=== PATIENT | male | born 1955 | race African-American/Black ===

== ENCOUNTER 2019-01-24 08:51 | Inpatient (IN) ==
[2019-01-24 10:00] LABS: BASO# 0.03 X1000 (0.0-0.2); BASO% 0.5 % (0.0-0.8); EOS# 0.19 X1000 (0.0-0.7); EOS% 2.9 % (0.0-10.0); HEMATOCRIT 41.1 % (42.0-52.0); HEMOGLOBIN 13.2 g/dL (14.0-18.0); IMM GRAN# 0.02 X1000 (0.0-0.04); IMM GRAN% 0.3 % (0.0-0.5); LYMPH% 39.5 % (20.5-51.1); MCH 29.3 PG (27-31); MCHC 32.1 g/dL (33-37); MCV 91.1 FL (81-99); MONO# 0.64 X1000 (0.11-0.59); MONO% 9.7 % (1.7-9.3); MPV 10.9 FL (7.4-10.4); NEUT% 47.1 % (42.2-75.2); PLT 282 X1000 (130-400); RBC 4.51 XMIL (4.7-6.1); RDW 13.3 % (11.5-14.5); WBC 6.58 X1000 (4.8-10.8)
--- NOTE | 2019-01-24 10:20 | EKG Report ---
Test Performed on : 01/24/2019 08:56:04 AM Test Reason : chest pain Blood Pressure : / mmHG Vent. Rate : 055 BPM Atrial Rate : 055 BPM P-R Int : 180 ms QRS Dur : 082 ms QT Int : 372 ms P-R-T Axes : 044 -06 -03 degrees QTc Int : 355 ms Sinus bradycardia. with occasional premature ventricular complexes. Left atrial enlargement Septal infarct , age undetermined Abnormal ECG No previous ECGs available Unconfirmed Result
--- NOTE | 2019-01-24 10:26 | Diag Imaging Result Doc PS360 ---
CHEST-2 VIEWS - 01/24/2019 INDICATION: chest pain COMPARISON: None FINDINGS: The lungs are normally expanded and clear. Heart size and mediastinal contours are normal. No pneumothorax or pleural effusion. IMPRESSION: Negative exam. Electronically signed by Skyler Garrison 01/24/2019 10:23 AM
[2019-01-24 10:35] LABS: AGAP 12; BUN 12 mg/dL (8-22); CALCIUM 8.8 mg/dL (8.8-10.2); CHLORIDE 104 mmol/L (98-107); COSMO 279; ESTIMATED GFR > 60; GLUCOSE 88 mg/dL (70-104); POTASSIUM 4.3 mmol/L (3.5-5.1); SODIUM 140 mmol/L (136-145); TCO2 24 mmol/L (25-35)
[2019-01-24] MEDS ORDERED: G.I. COCKTAIL PO ONE (10:42)
[2019-01-24] MEDS ORDERED: PEPCID IV ONE (10:42)
[2019-01-24] MEDS ORDERED: SODIUM CHLORIDE 0.9% INJ ONE ×2 (10:42)
[2019-01-24] MEDS ORDERED: PROTONIX IV ONE (10:42)
[2019-01-24] MEDS ORDERED: NITROGLYCERIN SL ONE (12:15)
--- NOTE | 2019-01-24 13:37 | HISTORY AND PHYSICAL ---
HISTORY OF PRESENT ILLNESS: He states that he has been having this pain on the left side of his chest for 2 weeks. Seems to come and go. Seems to be he notes more frequent in the last couple days. He denies fever or chills. No pleuritic pain. He does lift weights every day, including doing curls. On exam, he is tender in the left pectoralis muscle and seems to be reproducible, the pain he is describing. He does state that his left arm will get numb at times, but no pain into his jaw or into his shoulder or no pain in the arm. He has not had any trauma to his chest or left arm. PAST MEDICAL HISTORY: Apparently he has had a stent placed, never had chest pain, but he was feeling weak and apparently arteriogram revealed one vessel disease. I am not sure of the anatomy of that. He never reported being told he had any congestive heart failure or damage to heart that we know of. He has got diabetes mellitus type 2. He has history of hypertension, history of hypercholesterolemia. PRIOR SURGICAL HISTORY: He had one stent placed and had a partial thyroidectomy. ALLERGIES: No known drug allergies. Note I see where he has had a myocardial perfusion scan on 01/12/2018. Images revealed normal left ventricular cavity size. Normal myocardial perfusion. Left ventricular ejection fraction was 65%. He also had an echo last January as well. Technically suboptimal study, but normal left ventricular size, moderate concentric left ventricular hypertrophy. Ejection fraction 65-70%. No significant valvular dysfunction. REVIEW OF SYSTEMS: He did not report any fever or chills. No change in visual or hearing acuity. Neck: No complaints of neck pain or adenopathy. No pleuritic pain or cough or sputum production. No complaints of palpitations. Gastrointestinal and Genitourinary: No complaints of change in bowels or urinary patterns. Endocrinologic/Hematologic: No significant complaints or history. PHYSICAL EXAMINATION: VITAL SIGNS: Temp 98.0, pulse 50, respirations 15, blood pressure 158/87, O2 sat was 96%. Weight is 260 pounds. Height is 6 feet 2 inches. HEENT: Pupils are equal and round. LUNGS: Clear anterior and lateral. CARDIOVASCULAR: Regular rhythm and rate without murmur or S3. No distended neck veins. Neck was supple. No thyroid nodules or thyromegaly appreciated. ABDOMEN: Soft. No pedal edema. CAROTID: Radial and femoral pulses 2+ and symmetrical. LAB: White count 6580, hematocrit 41, platelet count 282,000. Sodium 140, potassium 4.3, chloride 104, BUN 12, creatinine 1.0, blood sugar 88, lipase was 50. Troponin less than 0.01. His chest x-ray is negative. No sign of infiltrates. No sign of pathology. ASSESSMENT AND PLAN: 1. Atypical chest pain. I suspect this is going to be musculoskeletal. Seems to be reproducible. He has had a myocardial perfusion scan a year ago, which is normal. We will admit him, check serial cardiac enzymes, troponin and CK. We will check serial EKGs. Ask cardiology to see. I suspect we need to repeat a GXT myocardial perfusion scan and compare to last year. 2. Diabetes mellitus type 2. We will check his sugars. Check pattern of sugars. Put him on a sliding scale. 3. Hypertension. Watch his blood pressure. 4. Hypercholesterolemia. Looking over his list of medications, may add as well that he has had a partial thyroidectomy and he is on Synthroid. We will check his T4 and TSH, and see what his levels are. 5. Looking over his medication, he takes ProAir as needed. He is on Norvasc 5 mg a day, aspirin 650 mg p.o. daily. He is on Azelastine nasal spray 137 mcg 2 puffs each nostril daily, vitamin D3 1 tab daily, Flonase 1 spray b.i.d., Advair 250/50 2 puffs b.i.d., isosorbide mononitrate 30 mg p.o. q.a.m. Synthroid 1 tablet daily, need to get the mcg dose, losartan/hydrochlorothiazide combination 100/12.5 one a day, Reglan 10 mg at bedtime, Lopressor 50 mg a day, montelukast or Singulair 10 mg a day, AcipHex 1 p.o. daily, Crestor 20 mg at bedtime. 6. We will also check a hemoglobin A1c in the morning and we will check a lipid profile. cc: Dewayne Dubon MD
[2019-01-24] MEDS ORDERED: TYLENOL PO PRN (14:34)
[2019-01-24] MEDS ORDERED: ZOFRAN IV PRN (14:34)
[2019-01-24] MEDS ORDERED: VENTOLIN HFA INH SCH (14:34)
[2019-01-24] MEDS ORDERED: SODIUM CHLORIDE 0.9% INJ SCH (14:34)
[2019-01-24] MEDS ORDERED: NITROGLYCERIN SL PRN (14:34)
[2019-01-24] MEDS: PROTONIX IV SCH (15:20)
[2019-01-24] MEDS ORDERED: HUMALOG SUBQ SCH (16:00)
[2019-01-24 16:07] LABS: CK INDEX 0.9 (0.0-2.5); CK-MB 3.1 ng/mL (0.0-5.0)
[2019-01-24] MEDS: ADVAIR 250/50 DISKUS INH SCH (19:52)
--- NOTE | 2019-01-24 20:47 | CARDIOLOGY CONSULTATION ---
DATE: 01/24/2019 REQUESTING PHYSICIAN: Hospitalist service. REASON FOR CONSULTATION: Chest discomfort, tiredness. HISTORY: Mr. Montilla is a very pleasant 63-year-old black gentleman who is a patient of Dr. Parham and Dr. Roberto Nieves. He presented to the emergency room today with complaints of feeling increasingly tired. In addition, he was experiencing recurrent random pains in the left anterior chest under the breast. This is a discomfort that does not last too long, but it is recurrent. It has no real pattern, although tends to happen more often during the evening hours. The patient says that he has been trying to be active and he has been walking 15 [address] every day. Since November of this year, because he was having bilateral shoulder pain, he started lifting weights about 80 pounds, 40 repetitions every day. He says that has helped to relieve the shoulder pain. This chest discomfort has been going on for about 3 or 4 weeks. He is concerned, as his is concerned also because of the development of fatigue. He says that prior to his stents he did have fatigue. PAST MEDICAL HISTORY: Positive for severe coronary heart disease. He had stents deployed back in 2011. At that time, they stented the right coronary artery. Subsequently he had a followup heart catheterization in [facility] in 08/[address] Meyers, who found a moderate circumflex stenosis and patent stent to the right coronary artery. I have reviewed the study myself and I was really not very impressed by any significant lesions. The patient had a stress test done in January of last year which came back normal. His history is positive for hypothyroidism, hypertension, hyperlipidemia. He is obese, with a body mass index of 34.3. He has been suspected to have sleep apnea syndrome; however, he has taken a sleep studies with Dr. Bates and they have been negative. PAST SURGICAL HISTORY: Positive for partial thyroidectomy due to hyperthyroidism in the past. ALLERGIES: In his case, negative. MEDICATIONS: His home medications listed included albuterol 1 puff every 4-6 hours; amlodipine 5 mg daily; aspirin 650 daily; isosorbide mononitrate 30 daily; levothyroxine 1 tablet daily; losartan/hydrochlorothiazide 100/12.5 daily; potassium chloride daily; AcipHex daily; Crestor daily; montelukast daily; Lopressor 50 daily. REVIEW OF SYSTEMS: Noncontributory at this time. He is really active. SOCIAL HISTORY: He has been to his for 29 years. He retired from [employer] in 2015 after 30-plus years of work. He has 2 grown adult children. He quit smoking 29 years ago. FAMILY HISTORY: Really noncontributory. PHYSICAL EXAMINATION: Blood pressure is 144/87, pulse 65, temperature 97.9 degrees, respirations 18. He is awake, alert in no distress. Well developed, very cooperative. is at the bedside. He is sitting upright, eating his supper. HEENT unremarkable. Chest is clear to auscultation and percussion. Heart sounds are regular and rhythmic. I do not hear gallop or murmur. His abdomen is obese, nontender. No masses or hepatomegaly. Extremities show good pulses. No peripheral edema. Neurologic exam nonfocal. Moving all 4 extremities. LABORATORY DATA: Sodium 140, potassium 4.3, BUN and creatinine are normal. His troponin levels are normal. They have been checked twice. Lipase is normal. His hemoglobin is 13.2, platelet count is normal. DIAGNOSTIC DATA: Chest x-ray done in the ER shows no abnormalities. His 12-lead electrocardiogram from this morning showed sinus rhythm with PVC, question of inferior scar. No significant ischemic ST or T-wave changes. IMPRESSION: 1. Patient presenting with really atypical chest discomfort. 2. Increasing fatigue. The reason for that is unclear. 3. History of severe coronary heart disease. Previous stent to right coronary artery. Patent stent noted in 2013. 4. History of hypertension. 5. Obesity. 6. Hyperlipidemia. RECOMMENDATIONS: At this time I will suggest to continue present medical therapy. We will go ahead and arrange for a nuclear stress test in the morning. We will use a walking Lexiscan protocol. Further advice will be forthcoming. Thank you for the opportunity to participate in the patient's evaluation. cc: Robert Billingsley MD [facility]INE HOSPITALYonathan
[2019-01-24] MEDS ORDERED: CRESTOR PO SCH (21:00)
[2019-01-24] MEDS: FLONASE NAS SCH (21:52)
[2019-01-24 23:13] LABS: CK INDEX 0.9 (0.0-2.5); CK-MB 3.08 ng/mL (0.0-5.0)
[2019-01-25] MEDS ORDERED: SYNTHROID PO SCH (07:00)
[2019-01-25] MEDS ORDERED: PRILOSEC PO SCH (07:00)
--- NOTE | 2019-01-25 07:30 | Diag Imaging Result Doc PS360 ---
EXAM: CHEST-PORTABLE INDICATION: Chest Pain TECHNIQUE: One view COMPARISON: 01/24/2019 FINDINGS: The lungs are grossly clear. There is no discrete pleural fluid collection or pneumothorax. The cardiomediastinal silhouette and central vasculature are grossly unremarkable. IMPRESSION: No evidence of acute pathology by plain radiograph. Electronically signed by Efren Castano 01/25/2019 7:28 AM
--- NOTE | 2019-01-25 07:38 | EKG Report ---
Test Performed on : 01/25/2019 07:17:51 AM Test Reason : follow up Blood Pressure : / mmHG Vent. Rate : 051 BPM Atrial Rate : 051 BPM P-R Int : 190 ms QRS Dur : 088 ms QT Int : 430 ms P-R-T Axes : 045 -03 002 degrees QTc Int : 396 ms Sinus bradycardia. Possible Left atrial enlargement Nonspecific T wave abnormality Abnormal ECG When compared with ECG of 24-JAN-2019 08:56, (Unconfirmed) premature ventricular complexes. are no longer present Unconfirmed Result
[2019-01-25 07:59] LABS: BASO# 0.02 X1000 (0.0-0.2); BASO% 0.3 % (0.0-0.8); EOS# 0.21 X1000 (0.0-0.7); EOS% 3.4 % (0.0-10.0); HEMATOCRIT 41.7 % (42.0-52.0); HEMOGLOBIN 13.3 g/dL (14.0-18.0); LYMPH# 2.73 X1000 (1.2-3.4); LYMPH% 43.8 % (20.5-51.1); MCH 29.5 PG (27-31); MCHC 31.9 g/dL (33-37); MCV 92.5 FL (81-99); MONO# 0.68 X1000 (0.11-0.59); MONO% 10.9 % (1.7-9.3); MPV 10.8 FL (7.4-10.4); NEUT# 2.59 X1000 (1.4-6.5); NEUT% 41.6 % (42.2-75.2); PLT 303 X1000 (130-400); RBC 4.51 XMIL (4.7-6.1); RDW 13.5 % (11.5-14.5); WBC 6.23 X1000 (4.8-10.8)
[2019-01-25 08:12] LABS: AGAP 9; BUN 14 mg/dL (8-22); CALCIUM 8.9 mg/dL (8.8-10.2); CHLORIDE 104 mmol/L (98-107); CHOLESTEROL 116 mg/dL (0-200); COSMO 278; CREATININE 1.3 mg/dL (0.7-1.2); ESTIMATED GFR > 60; GLUCOSE 93 mg/dL (70-104); HDL 29 mg/dL (35-55); LDL 62 mg/dL; POTASSIUM 4.2 mmol/L (3.5-5.1); SODIUM 139 mmol/L (136-145); TCO2 26 mmol/L (25-35); TRIGLYCERIDES 123 mg/dL (39-160); VLDL 25 mg/dL
[2019-01-25 08:20] LABS: HEMOGLOBIN A1C 5.7 % (4.8-6.0)
[2019-01-25] MEDS ORDERED: LEXISCAN ONE (08:28)
[2019-01-25 08:30] LABS: FREE T4 1.18 ng/dL (0.93-1.70); TSH 2.1 uIUmL (0.27-4.20)
[2019-01-25] MEDS ORDERED: ASTELIN NASAL SPRAY NAS SCH (09:00)
[2019-01-25] MEDS ORDERED: NORVASC PO SCH (09:00)
[2019-01-25] MEDS ORDERED: ACIPHEX PO SCH (09:00)
[2019-01-25] MEDS ORDERED: SINGULAIR PO SCH (09:00)
[2019-01-25] MEDS ORDERED: IMDUR PO SCH (09:00)
[2019-01-25] MEDS ORDERED: HYZAAR 100/12.5 MG TAB PO SCH (09:00)
[2019-01-25] MEDS ORDERED: ASPIRIN EC PO SCH (09:00)
[2019-01-25] MEDS ORDERED: LOPRESSOR PO SCH (09:00)
[2019-01-25] MEDS ORDERED: KLOR-CON PO SCH (09:00)
[2019-01-25] MEDS ORDERED: ASPIRIN PO SCH (09:00)
[2019-01-25] MEDS: FLONASE NAS SCH (10:10)
[2019-01-25] MEDS: ADVAIR 250/50 DISKUS INH SCH (10:18)
--- NOTE | 2019-01-25 13:16 | PROGRESS NOTE ---
DATE: 01/25/2019 SUBJECTIVE: He says he feels good. No chest pain. He was eating lunch when I walked in the room. EXAM: Vital Signs: Temperature 97.6 degrees, pulse 51, respirations 19, blood pressure 141/82. Eyes: Pupils are equal and round. Lungs: Clear in all lung wang. Cardiovascular: Regular rhythm and rate without murmur S3. DATA: Urine output was 1700 mL. ASSESSMENT AND PLAN: 1. The patient presented with atypical chest pain. He has had nuclear myocardial GXT this morning using walking Lexiscan protocol I believe. Await results. 2. Increasing fatigue, unsure of etiology. 3. History of severe coronary artery disease, previous stent to right coronary artery, patent stent noted in 2013. 4. Hypertension. 5. Obesity. 6. Hyperlipidemia. LABORATORY DATA: Review of labs from this morning unremarkable. Troponin less than 0.01. Electrolytes look good. Sodium 139, potassium 4.2, chloride 104, BUN 4, creatinine 1.3 PLAN: So we will await the studies. cc: Dewayne Dubon MD
[2019-01-25] MEDS: PROTONIX IV SCH (16:03)
[2019-01-25 16:22] VITALS: BP 130/79
--- NOTE | 2019-01-25 16:51 | DISCHARGE SUMMARY ---
ADMISSION DATE: 01/24/2019 DISCHARGE DATE: 01/25/2019 PRIMARY CARE PHYSICIAN: Dr. Roberto Nieves. HISTORY AND HOSPITAL COURSE: He presented having chest pain on the left side of his chest for 2 weeks, would come and go. He has been working out and lifting weights recently. Notes more frequent in the last couple days. No fever or chills. No pleuritic pain. Apparently, he has had a stent placed in the past and arteriogram revealed 1 vessel disease and so he was admitted to the hospital. Cardiac enzymes and EKG unremarkable. He underwent Myoview perfusion scan GXT and it was completely unremarkable, with good perfusion and no EKG changes, so no sign of cardiac ischemia. He had no further pain and felt he could go home. Follow up with his primary care physician. DISCHARGE MEDICATIONS: His home medications we will continue. He is on ProAir 1 puff q.4-6 hours, Norvasc 5 mg a day, aspirin 650 mg a day, Azelastine 2 sniffs every day, vitamin D3 1 tablet daily, Flonase 1 spray b.i.d., fluticasone or Advair 250/50 two puffs b.i.d., isosorbide mononitrate 30 mg a day, Synthroid 1 g daily, losartan hydrochlorothiazide 1 daily, Reglan 10 mg at bedtime Lopressor 10 mg a day, Singulair 10 mg daily. He does have some sublingual nitroglycerin to use p.r.n. 0.5 mg, Klor-Con 1 tablet daily, AcipHex 1 tablet daily, and Crestor 20 mg at bedtime. cc: Dewayne Dubon MD
--- NOTE | 2019-01-25 19:45 | Diag Imaging Result Document ---
PROCEDURE NAME: MYOCARDIAL PERF SCAN, STR/REST - 01/25/2019 INDICATION: A 63-year-old male with previous coronary stents who presented with increasing discomfort in the chest and fatigue. Progression of coronary heart disease is suspected. DESCRIPTION: The patient came in to the nuclear lab and received a rest injection of technetium 99 sestamibi 15.5 mCi. Multiple tomographic views of the cardiac structures were obtained at rest. Subsequently the patient underwent a walking Lexiscan protocol, and 0.4 mg of Lexiscan was infused. At peak infusion, he was injected with technetium 99 sestamibi 45.3 mCi. Multiple tomographic views of the cardiac structures were obtained following completion of the protocol. SUMMARY OF THE ELECTROCARDIOGRAPHIC PORTION OF THE STUDY: Resting electrocardiogram showed sinus rhythm, rate 54 beats per minute. Resting blood pressure was 144/92. Resting ECG showed no significant abnormality. During the protocol the heart rate increased to a maximum of 93 beats per minute. Blood pressure went up to 182/92. The patient reported no chest, shortness of breath or palpitations. ECG showed no significant changes. Following the completion of infusion, the heart rate and blood pressure returned back to baseline. In summary, electrocardiographic response to a walking Lexiscan protocol appears to be normal. SUMMARY OF THE MYOCARDIAL PERFUSION PORTION OF THE STUDY: Poststress tomographic views of the left ventricle showed a moderately extensive, [id number] inferior wall defect. The defect seems to span from the base of the inferior wall all the way to the apical inferior wall. The rest images showed that this defect is essentially fixed. The polar plots revealed the same. There is the scintigraphic suggestion of an inferior wall scar of mild to moderate severity, limited in extent; however, it spans the base all the way to the apical portion of the inferior wall. It has almost like a wedge shape. Gated SPECT on the rest images showed ejection fraction of 79%. Poststress images showed ejection fraction of 71% using the [employer] protocol. Using the myometrics protocol, the rest ejection fraction was 75% and the poststress 76%. The lung/heart ratio is normal at 0.32 on stress images, and 0.39 on the rest images. The TID is 1.04. SUMMARY: This study shows: 1. Unremarkable electrocardiographic response to a walking Lexiscan protocol. 2. Mildly abnormal poststress myocardial perfusion scan. There is scintigraphic suggestion of an inferior wall defect of limited extent, mild to moderate in severity. There is no evidence of inducible ischemia in this study. 3. "Normal" left ventricular systolic function, ejection fraction of 71% on the poststress images. The rest images showed a better ejection fraction which is not the usual response; however, using the myometrix protocol, the rest ejection fraction is 75% and the poststress is 76%. Clinical correlation recommended. If patient continues to have symptoms suspicious for ischemic heart disease, then perhaps a left heart catheterization would be reasonable, since this type of image modality has difficulties with single-vessel coronary artery disease. cc: Robert Billingsley MD MTDD
--- NOTE | 2019-01-26 08:15 | ECHO REPORT ---
ORDER DATE: 01/24/2019 INDICATION: Patient of Dr. Ca, hospitalist service. Chest pain, hypertension, and coronary heart disease. M-MODE MEASUREMENTS: Left ventricle end diastole: 5.6. Left ventricle end systole: 3.6. Posterior wall: 1.2. Interventricular septum: 1.3. Left atrium: 3.4. Aortic root: 4.0. SUMMARY OF 2-DIMENSIONAL IMAGING: The study is difficult. Optison was injected to opacify the left ventricular chamber. 1. The left ventricular systolic function appears to be normal. Ejection fraction estimated at 65%. No wall motion abnormality is noted. 2. The aortic valve looks normal. Color flow mapping unremarkable. 3. The mitral valve looks normal. Color flow mapping unremarkable. 4. Pulsed wave Doppler of mitral inflow shows mild reversal of the E and the A ratio. 5. Tissue Doppler of septal and lateral mitral annulus averages 8 cm. There is no diastolic dysfunction. 6. Tricuspid valve looks normal with trace of regurgitation. Inferior vena cava is not dilated. 7. Pulmonary pressure is normal. Pulmonic valve looks normal. Color flow mapping unremarkable. 8. There is no pericardial effusion, mass, and no thrombus. SUMMARY: This study shows: 1. Normal left ventricular systolic function. 2. No diastolic dysfunction. 3. No pulmonary hypertension. 4. No evidence of any significant valvular abnormality. Optison was used to opacify the left ventricular chamber. cc: Robert Billingsley MD
== END 2019-01-25 16:53 | disposition home or self-care (01) | DRG 313 ==
LOC: ED 08:51 → 3N 14:19
PROVIDERS: ATTEND Emergency Medicine
CPT/HCPCS: 71010; 71020; 71045; 71046; 78452; 80048; 80061; 82550; 82553; 82607; 82746; 83036; 83690; 83735; 84439; 84443; 84484; 85025; 93005; 93017; 93306; 94640; 94761; 96374; 96375; 99285; A9270; A9500; C8929; C9113; J2785; Q9957; S0028; S0164